=== PATIENT | female | born 1950 ===

== ENCOUNTER 2019-05-18 03:43 | Emergency (ER) | payer SELFPAY ==
[2019-05-18 06:05] LABS: Hemoglobin 14.3 g/dL (12.0-16.0); Mean Corpuscular HGB CONC 31.9 g/dL (32.0-36.0); Mean Corpuscular Hemoglobin 29.5 pg (27.0-31.0); Mean Corpuscular Volume 92.6 fL (78.0-98.0); Mean Platelet Volume 7.5 fL (7.4-10.4); Platelet Count 264 thou/uL (130-400); RBC Distribution Width 11.5 % (11.5-14.5); Red Blood Cell (RBC) Count 4.86 mill/uL (4.20-5.40); White Blood Cell (WBC) Count 4.8 thou/uL (4.8-10.8)
[2019-05-18 06:07] LABS: ALT (SGPT) 30 U/L (8-55); AST (SGOT) 25 U/L (5-34); Alkaline Phosphatase 84 U/L (40-110); Anion Gap 12 mmol/L (10-20); BUN (Urea Nitrogen) 11 mg/dL (9.8-20.1); Bilirubin, Total 0.3 mg/dL (0.2-1.2); Calc. Creatinine Clearance 0 mL/min (70-130); Calcium 9.3 mg/dL (7.8-10.44); Carbon Dioxide 23 mmol/L (23-31); Chloride 105 mmol/L (98-107); Estimated GFR-MDRD 69; Globulin 3.1 g/dL (2.4-3.5); Glucose 115 mg/dL (83-110); Lipase 35 U/L (8-78); Potassium 3.9 mmol/L (3.5-5.1); Protein, Total 7.1 g/dL (6.0-8.3); Sodium 136 mmol/L (136-145)
[2019-05-18 06:31] LABS: Band 11 % (5-11); Eosinophils 1 % (0-10); Lymphocytes 20 % (21-51); MDiff Complete? YES; Monocytes 11 % (0-10); Neutrophil 57 % (42-75)
--- NOTE | 2019-05-18 07:50 | RAD ---
Right shoulder 3 views HISTORY: Right shoulder pain. FINDINGS: Acromioclavicular alignment is within normal limits. Elevation of the humeral head in relat ion to the glenoid. Osteophytosis of both joints. No acute fracture, dislocation, or aggressive osseous erosions. IMPRESSION: Osteoarthritic changes right shoulder. Probable chronic rotator cuff tear.
--- NOTE | 2019-05-18 07:52 | RAD ---
Chest one view HISTORY: Chest pain and shoulder pain. FINDINGS: Cardiac silhouette is magnified and upper limits of normal in size. Pulmonary vasculature i s unremarkable. Mediastinum is midline. 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 No lobar consolidation or evidence of pneumothorax. campus monitor leads ov erlie the chest. IMPRESSION: No active cardiopulmonary abnormalities are demonstrated.
== END 2019-05-18 06:39 | disposition home or self-care (01) ==
LOC: ERS 03:43
DX: B02.9 Zoster without complications (principal); I10 Essential (primary) hypertension
CPT/HCPCS: 36415; 71045; 80053; 83690; 84484; 85025; 93005